=== PATIENT | male | born 1965 | race Hispanic/Latino ===

== ENCOUNTER 2021-07-31 17:05 | Emergency (ER) | payer OTHER, MEDICARE ==
--- NOTE | 2021-07-31 17:13 | Emergency Department Report ---
ED Abdominal Pain HPI - General Chief Complaint: Abdominal Pain Stated Complaint: ABD PAIN PUI?: No Time Seen by Provider: 07/31/21 17:07 Source: patient, EMS, old records reviewed Mode of arrival: Ambulatory Limitations: No Limitations - History of Present Illness Initial Comments: Chief complaint: HPI: This is a 56-year-old male with history of hypertension, anxiety, panic attacks, depression, H. pylori, sleep apnea, diverticulitis who presents with left lower quadrant abdominal pain for 7 days. Sharp 10 out of 10 in severity. No radiation. Positive nausea vomiting bloody diarrhea. He denies fever, chest pain. Past surgical history: Cholecystectomy MD Complaint: abdominal pain -: Gradual, days(s) (7 days) Location: LLQ Radiation: none Severity: severe Severity scale (0 -10): 10 Improves With: nothing Worsens With: nothing Context: other (History of diverticulitis) Associated Symptoms: nausea, vomiting, diarrhea - Related Data Home Medications Medication Instructions Recorded Confirmed Last Taken ALPRAZolam [Xanax TAB] 0.5 mg PO BID PRN 08/20/15 10/23/15 Unknown HYDROcodone/APAP 10-325 [[place] 1 each PO Q8HR PRN 08/20/15 10/23/15 Unknown 10/325] clonazePAM [KlonoPIN] 2 mg PO BID PRN 08/20/15 10/23/15 Unknown lisinopriL [Zestril TAB] 40 mg PO QDAY 08/20/15 10/23/15 Unknown Previous Rx's Medication Instructions Recorded Last Taken Type Ondansetron [Zofran Odt] 4 mg PO Q8HR PRN #10 tab.rapdis 07/31/21 Unknown Rx traMADoL [Ultram 50 MG tab] 50 mg PO Q6HR PRN #10 tablet 07/31/21 Unknown Rx Allergies Allergy/AdvReac Type Severity Reaction Status Date / Time No Known Allergies Allergy Unverified 08/20/15 10:20 ED Review of Systems ROS: Stated complaint: ABD PAIN Other details as noted in HPI Comment: All other systems reviewed and negative Constitutional: denies: chills, fever Respiratory: denies: cough, shortness of breath Cardiovascular: denies: chest pain Gastrointestinal: abdominal pain, nausea, vomiting, diarrhea Genitourinary: denies: urgency, dysuria Skin: denies: rash, lesions Neurological: denies: headache, weakness ED Past Medical Hx - Past Medical History Previous Medical History?: Yes Hx Hypertension: Yes Hx Psychiatric Treatment: Yes (ANXIETY/ PANIC ATTACK/ DEPRESSION) Additional medical history: GASTRITIS. H-PYLORI, SLEEP APNEA, DIVERTICULITIS - Surgical History Past Surgical History?: Yes Hx Coronary Stent: No Hx Open Heart Surgery: No Hx Pacemaker: No Hx Internal Defibrillator: No Hx Cholecystectomy: Yes Hx Appendectomy: No Hx Breast Surgery: No - Social History Smoking Status: Former Smoker Substance Use Type: None - Medications Home Medications: Home Medications Medication Instructions Recorded Confirmed Last Taken Type ALPRAZolam [Xanax TAB] 0.5 mg PO BID PRN 08/20/15 10/23/15 Unknown History HYDROcodone/APAP 10-325 [[place] 1 each PO Q8HR PRN 08/20/15 10/23/15 Unknown His tory 10/325] clonazePAM [KlonoPIN] 2 mg PO BID PRN 08/20/15 10/23/15 Unknown History lisinopriL [Zestril TAB] 40 mg PO QDAY 08/20/15 10/23/15 Unknown History Ondansetron [Zofran Odt] 4 mg PO Q8HR PRN #10 tab.rapdis 07/31/21 Unknown Rx traMADoL [Ultram 50 MG tab] 50 mg PO Q6HR PRN #10 tablet 07/31/21 Unknown Rx ED Physical Exam - General Limitations: No Limitations General appearance: alert, in no apparent distress - Head Head exam: Present: atraumatic, normocephalic - Eye Eye exam: Present: normal appearance - ENT ENT exam: Present: mucous membranes moist - Neck Neck exam: Present: normal inspection, full ROM - Respiratory Respiratory exam: Present: normal lung sounds bilaterally. Absent: respiratory distress, wheezes, rales, rhonchi - Cardiovascular Cardiovascular Exam: Present: regular rate, normal rhythm, normal heart sounds. Absent: systolic murmur, diastolic murmur, rubs, gallop - GI/Abdominal GI/Abdominal exam: Present: soft. Absent: distended, tenderness, guarding, rebound - Extremities Exam Extremities exam: Present: normal inspection - Neurological Exam Neurological exam: Present: alert, oriented X3 - Psychiatric Psychiatric exam: Present: flat affect - Skin Skin exam: Present: warm, dry, intact, normal color. Absent: rash ED Course Vital Signs 07/31/21 07/31/21 17:11 17:16 Temperature 99.1 F Pulse Rate 82 Respiratory 16 Rate Blood Pressure 112/76 [Right] O2 Sat by Pulse 97 Oximetry ED Medical Decision Making - Lab Data Result diagrams: 07/31/21 17:31 07/31/21 17:31 Laboratory Results - last 24 hr 07/31/21 07/31/21 17:31 17:31 WBC 6.6 RBC 4.32 Hgb 13.8 Hct 41.4 MCV 96 H MCH 32 MCHC 33 RDW 13.9 Plt Count 272 Lymph % (Auto) 26.0 [place]man % (Auto) 10.7 H Eos % (Auto) 1.1 Baso % (Auto) 0.6 Lymph # (Auto) 1.7 [place] # (Auto) 0.7 Eos # (Auto) 0.1 Baso # (Auto) 0.0 Seg Neutrophils % 61.6 Seg Neutrophils # 4.1 Sodium 130 L Potassium 4.4 Chloride 95.3 L Carbon Dioxide 24 Anion Gap 15 BUN 13 Creatinine 0.6 L Estimated GFR > 60 BUN/Creatinine Ratio 22 Glucose 99 Calcium 9.0 Total Bilirubin 0.40 AST 18 ALT 21 Alkaline Phosphatase 284 H Total Protein 6.9 Albumin 3.7 L Albumin/Globulin Ratio 1.2 Lipase 22 - Radiology Data Radiology results: report reviewed atient ID: [id number] Gender: Male Date of : 1965 Referring Provider: FELISHA WHELAN Organization: [facility] Accession Number: [id number] Requested Date: July 31, 2021 17:13 Report Status: Final Requested Procedure: 1 Procedure Description: CT abdomen pelvis w con Modality: CT Findings Reporting MD: Beka Mustafa Dictation Time: July 31, 2021 18:34 Registered Nurse Ambulatory: Not available Nail Maker Date: CT ABDOMEN AND PELVIS WITH CONTRAST INDICATION / CLINICAL INFORMATION: Left lower quadrant pain history of diverticulitis [id number] 100ml. TECHNIQUE: Axial CT images were obtained through the abdomen and pelvis after IV contrast. All CT scans at this location are performed using CT dose reduction for ALARA by means of automated exposure cont rol. COMPARISON: None available. FINDINGS: LOWER CHEST: Small amount of fluid noted within the distal esophagus. LIVER: No significant abnormality. GALLBLADDER: Cholecystectomy. PANCREAS: No significant abnormality. SPLEEN: No significant abnormality. ADRENALS: Approximately by 2 x 2.7 cm enhancing nodule within the left adrenal gland. There are a few prominent lymph nodes within the retroperitoneum adjacent to the left adrenal gland are not technically enlarged by CT criteria. RIGHT KIDNEY / URETER: No significant abnormality. LEFT KIDNEY / URETER: No significant abnormality. STOMACH / SMALL BOWEL: No significant abnormality. COLON: No significant abnormality. APPENDIX: No significant abnormality. PERITONEUM: No free fluid, free air or organized collection. LYMPH NODES: No significant adenopathy. AORTA / ARTERIES/ VEINS: No significant abnormality. URINARY BLADDER: No significant abnormality. REPRODUCTIVE ORGANS: No significant abnormality. ADDITIONAL FINDINGS: None. SKELETAL SYSTEM: No acute abnormality. Degenerative change of the lumbar spine. IMPRESSION: 1. No acute abnormality. 2. Small amount fluid noted within distal esophagus, could reflect gastroesop hageal reflux. 3. 2.0 x 2.7 cm enhancing nodule within the left renal gland, new compared with reference exam. Findings are indeterminate clinical significance but could be further evaluated with CT or MRI adrenal mass protocol in outpatient setting. Primary adrenal neoplasm or adrenal metastasis cannot be excluded. There are a couple of mildly prominent lymph nodes adjacent to the left adrenal gland which are also slightly enlarged compared to reference exam. - Medical Decision Making Mr. Rodríguez presents with LLQ pain for 7 days. No evidence of diverticular disease. Incidental finding of adrenal mass which is new from 2016. Hyponatremia hypochloremia presumed to be due to dehydration, addressed with IV NS bolus. Mr. Rodríguez also received IV morphine and IV zofran. No indication of obstructive or inflammatory process to explain LLQ pain. DDX: constipation, IBS, medication effect Referred to primary physician for outpatient adrenal mass MRI or CT. I had extensive conversation with patient regarding the incidental finding of adrenal gland mass. He understands to take his discharge documentation to his primary care physician for further work-up. prescribed Zofran for nausea. recommended clear liquid diet. On reassessment prior to discharge, patient is resting comfortably. He does not have any abdominal tenderness. He requested tramadol prescription. I provided tramadol prescription for 10 tablets. Critical care attestation.: If time is entered above; I have spent that time in minutes in the direct care of this critically ill patient, excluding procedure time. ED Disposition Clinical Impression: Abdominal pain, Left adrenal mass Disposition: HOME / SELF CARE / HOMELESS Is pt being admited?: No Does the pt Need Aspirin: No Condition: Stable Additional Instructions: You have a tumor/mass on your left adrenal gland. Your primary doctor will need to order a CT or MRI specifically for an adrenal gland assessement. Please return to the ER if you develop worsening pain, fever, or new symptoms. Prescriptions: traMADoL [Ultram 50 MG tab] 50 mg PO Q6HR PRN #10 tablet PRN Reason: Pain Ondansetron [Zofran Odt] 4 mg PO Q8HR PRN #10 tab.rapdis PRN Reason: Nausea Referrals: PRIMARY CARE, [Primary Care Provider] - 3-5 Days
[2021-07-31] MEDS ORDERED: ONDANSETRON 4 MG/2 ML INJ IV ONE (17:14)
[2021-07-31] MEDS ORDERED: MORPHINE 4 MG/1 ML INJ IV ONE (17:14)
[2021-07-31 17:42] LABS: Basophils % (Auto) 0.6 % (0.0-1.8); Eosinophils # (Auto) 0.1 K/mm3 (0.0-0.4); Eosinophils % (Auto) 1.1 % (0.0-4.3); Hematocrit 41.4 % (35.5-45.6); Hemoglobin 13.8 gm/dl (11.8-15.2); Lymphocytes # (Auto) 1.7 K/mm3 (1.2-5.4); Mean Corpuscular HGB Conc 33 % (32-34); Mean Corpuscular Volume 96 fl (84-94); Monocytes # (Auto) 0.7 K/mm3 (0.0-0.8); Monocytes % (Auto) 10.7 % (0.0-7.3); Platelet Count 272 K/mm3 (140-440); Red Blood Count 4.32 M/mm3 (3.65-5.03); Red Cell Distribution Width 13.9 % (13.2-15.2)
[2021-07-31 18:05] LABS: Alanine Aminotransferase 21 units/L (7-56); Albumin 3.7 g/dL (3.9-5); Blood Urea Nitrogen 13 mg/dL (9-20); Hemolysis Index 45
[2021-07-31] MEDS ORDERED: SODIUM CHLORIDE 0.9% 1000 ML 1,000 ML IV ONE (18:10)
[2021-07-31 18:13] LABS: BUN/Creatinine Ratio 22
--- NOTE | 2021-07-31 19:38 | Cat Scan Report ---
CT ABDOMEN AND PELVIS WITH CONTRAST INDICATION / CLINICAL INFORMATION: Left lower quadrant pain history of diverticulitis [id number] 100ml. TECHNIQUE: Axial CT images were obtained through the abdomen and pelvis after IV contrast. All CT sc ans at this location are performed using CT dose reduction for ALARA by means of automated exposure c ontrol. COMPARISON: None available. FINDINGS: LOWER CHEST: Small amount of fluid noted within the distal esophagus. LIVER: No significant abnormality. GALLBLADDER: Cholecystectomy. PANCREAS: No significant abnormality. SPLEEN: No significant abnormality. ADRENALS: Approximately by 2 x 2.7 cm enhancing nodule within the left adrenal gland. There are a few prominent lymph nodes within the retroperitoneum adjacent to the left adrenal gland are not technica lly enlarged by CT criteria. RIGHT KIDNEY / URETER: No significant abnormality. LEFT KIDNEY / URETER: No significant abnormality. STOMACH / SMALL BOWEL: No significant abnormality. COLON: No significant abnormality. APPENDIX: No significant abnormality. PERITONEUM: No free fluid, free air or organized collection. LYMPH NODES: No significant adenopathy. AORTA / ARTERIES/ VEINS: No significant abnormality. URINARY BLADDER: No significant abnormality. REPRODUCTIVE ORGANS: No significant abnormality. ADDITIONAL FINDINGS: None. SKELETAL SYSTEM: No acute abnormality. Degenerative change of the lumbar spine. IMPRESSION: 1. No acute abnormality. 2. Small amount fluid noted within distal esophagus, could reflect gastroesophageal reflux. 3. 2.0 x 2.7 cm enhancing nodule within the left renal gland, new compared with reference exam. Find ings are indeterminate clinical significance but could be further evaluated with CT or MRI adrenal ma ss protocol in outpatient setting. Primary adrenal neoplasm or adrenal metastasis cannot be excluded. There are a couple of mildly prominent lymph nodes adjacent to the left adrenal gland which are also slightly enlarged compared to reference exam. Signer Name: Beka Mustafa MD Signed: 07/31/2021 7:34 PM Workstation Name: [id number]
[2021-07-31] MEDS ORDERED: traMADol 50 MG TAB PO ONE (19:58)
[2021-07-31 20:39] VITALS: BP 126/78
== END 2021-07-31 21:06 | disposition home or self-care (01) ==
LOC: ED 17:05
DX: R10.9 Unspecified abdominal pain (principal); E27.8 Other specified disorders of adrenal gland; I10 Essential (primary) hypertension; G47.30 Sleep apnea, unspecified; Z90.49 Acquired absence of other specified parts of digestive tract; Z87.891 Personal history of nicotine dependence
CPT/HCPCS: 36415; 74177; 80053; 83690; 85025; 96361; 96374; 96375; 99284; J2270; J2405; J7030; Q9967; Q0162

== ENCOUNTER 2021-09-27 13:42 | Emergency (ER) | payer OTHER, MEDICARE ==
[2021-09-27 15:59] VITALS: BP 120/88
[2021-09-27] MEDS ORDERED: HALOPERIDOL LACTATE 5 MG/1 ML INJ IM ONE (15:59)
--- NOTE | 2021-09-27 16:00 | Emergency Department Report ---
ED Abdominal Pain HPI - General Chief Complaint: Abdominal Pain Stated Complaint: ABDOMINAL PAIN Time Seen by Provider: 09/27/21 15:59 Source: patient Mode of arrival: Ambulatory Limitations: No Limitations - History of Present Illness Initial Comments: Patient presents secondary to abdominal pain requesting a pain shot of morphine. He states that he was diagnosed with gastric cancer. He bases this on a diagnosis of Perez's esophagus. He then states that his GI doctor told him that it was cancer and he has a follow-up appointment at a different facility for PET scan. Patient states that he has been given morphine and hydrocodone for pain. He is run out. He came here for evaluation. He states that he just needs a "pain shot of morphine" to get him through the weekend and to his appointment. He is complaining of epigastric pain. This is the pain that he has always had when he has gotten these medications. He has had no fevers or ch ills. There is no recent travel or trauma. Has no nausea or vomiting. There is no hematemesis or coffee-ground emesis. Pain is cramping and burning in nature. It does not radiate or migrate. - Related Data Home Medications Medication Instructions Recorded Confirmed Last Taken ALPRAZolam [Xanax TAB] 0.5 mg PO BID PRN 08/20/15 10/23/15 Unknown HYDROcodone/APAP 10-325 [[place] 1 each PO Q8HR PRN 08/20/15 10/23/15 Unknown 10/325] clonazePAM [KlonoPIN] 2 mg PO BID PRN 08/20/15 10/23/15 Unknown lisinopriL [Zestril TAB] 40 mg PO QDAY 08/20/15 10/23/15 Unknown Previous Rx's Medication Instructions Recorded Last Taken Type Ondansetron [Zofran Odt] 4 mg PO Q8HR PRN #10 tab.rapdis 07/31/21 Unknown Rx traMADoL [Ultram 50 MG tab] 50 mg PO Q6HR PRN #10 tablet 07/31/21 Unknown Rx Allergies Allergy/AdvReac Type Severity Reaction Status Date / Time No Known Allergies Allergy Verified 09/27/21 15:59 ED Review of Systems ROS: Stated complaint: ABDOMINAL PAIN Other details as noted in HPI Comment: All other systems reviewed and negative Constitutional: denies: fever Eyes: denies: eye pain ENT: denies: throat pain Respiratory: denies: cough Cardiovascular: denies: chest pain Endocrine: denies: unexplained weight loss Gastrointestinal: as per HPI Genitourinary: denies: dysuria Musculoskeletal: denies: back pain Skin: denies: rash Neurological: denies: headache Hematological/Lymphatic: denies: easy bruising ED Past Medical Hx - Past Medical History Hx Hypertension: Yes Hx of Cancer: Yes (By his history) Hx Psychiatric Treatment: Yes (ANXIETY/ PANIC ATTACK/ DEPRESSION) Additional medical history: GASTRITIS. H-PYLORI, SLEEP APNEA, DIVERTICULITIS - Surgical History Hx Coronary Stent: No Hx Open Heart Surgery: No Hx Pacemaker: No Hx Internal Defibrillator: No Hx Cholecystectomy: No Hx Appendectomy: No Hx Breast Surgery: No - Family History Family history: no significant - Social History Smoking Status: Unknown if ever smoked - Medications Home Medications: Home Medications Medication Instructions Recorded Confirmed Last Taken Type ALPRAZolam [Xanax TAB] 0.5 mg PO BID PRN 08/20/15 10/23/15 Unknown History HYDROcodone/APAP 10-325 [[place] 1 each PO Q8HR PRN 08/20/15 10/23/15 Unknown History 10/325] clonazePAM [KlonoPIN] 2 mg PO BID PRN 08/20/15 10/23/15 Unknown History lisinopriL [Zestril TAB] 40 mg PO QDAY 08/20/15 10/23/15 Unknown History Ondansetron [Zofran Odt] 4 mg PO Q8HR PRN #10 tab.rapdis 07/31/21 Unknown Rx traMADoL [Ultram 50 MG tab] 50 mg PO Q6HR PRN #10 tablet 07/31/21 Unknown Rx ED Physical Exam - General Limitations: No Limitations, Other (Pulse ox noted and normal) General appearance: alert, in no apparent distress - Head Head exam: Present: atraumatic, normocephalic - Eye Eye exam: Present: normal appearance, EOMI. Absent: scleral icterus - ENT ENT exam: Present: normal orophraynx, normal external ear exam - Neck Neck exam: Present: normal inspection. Absent: meningismus - Respiratory Respiratory exam: Present: normal lung sounds bilaterally. Absent: respiratory distress - Cardiovascular Cardiovascular Exam: Present: regular rate, normal rhythm - GI/Abdominal GI/Abdominal exam: Present: soft, tenderness (Mild epigastric). Absent: distended, guarding, rebound, pulsatile mass - Extremities Exam Extremities exam: Present: normal capillary refill - Back Exam Back exam: Absent: CVA tenderness (R), CVA tenderness (L) - Neurological Exam Neurological exam: Present: alert, oriented X3, CN II-XII intact, normal gait. Absent: motor sensory deficit - Psychiatric Psychiatric exam: Present: normal affect, normal mood - Skin Skin exam: Present: warm, dry ED Course Vital Signs 09/27/21 15:58 Temperature 98.9 F Pulse Rate 100 H Respiratory 18 Rate Blood Pressure 120/88 [Left] O2 Sat by Pulse 95 Oximetry - Reevaluation(s) Reevaluation #1: 09/27/21 17:28 Patient was given an injection. Old records noted. ED Medical Decision Making - Medical Decision Making Patient presented secondary to an exacerbation of his chronic pain. He reported this is cancer related pain, although based on my review of old records I do not see a clear diagnosis of cancer. Patient was given haloperidol as opposed to any type of opioid medication. He was flatly informed that we would not refill his prescriptions or provide ongoing opioid medication for chronic conditions. Patient was instructed to follow-up with his regular doctor and his oncologist. He certainly did not have pulsatile mass suggestive of AAA. There is no evidence of distention or tympany to suggest bowel obstruction. Critical Care Time: No Critical care attestation.: If time is entered above; I have spent that time in minutes in the direct care of this critically ill patient, excluding procedure time. ED Disposition Clinical Impression: Chronic abdominal pain, Cancer associated pain Disposition: HOME / SELF CARE / HOMELESS Is pt being admited?: No Condition: Stable Instructions: Chronic Pain, Adult Additional Instructions: KEEP YOUR APPOINTMENT WITH YOUR PRIMARY DOCTOR. Referrals: PRIMARY CARE, [Referring] - 3-5 Days
== END 2021-09-27 18:44 | disposition home or self-care (01) ==
LOC: ED 13:42
DX: G89.3 Neoplasm related pain (acute) (chronic) (principal); G89.4 Chronic pain syndrome; R10.13 Epigastric pain
CPT/HCPCS: 96372; 99282; J1630